=== PATIENT | male | born 1960 | race Asian ===

== ENCOUNTER 2019-08-06 10:15 | Observation (INO) | payer BC ==
[2019-08-06] MEDS: CEFTRIAXONE 1 GM/NS 50 ML IVPB (12:30)
[2019-08-06] MEDS ORDERED: MIDAZOLAM 1 MG/ML 2 ML INJ (12:51)
[2019-08-06] MEDS ORDERED: SEVOFLURANE 15 MIN (13:00)
[2019-08-06] MEDS ORDERED: PHENYLephrine 10 MG INJ (14:52)
[2019-08-06] MEDS ORDERED: PROPOFOL 20 ML (15:45)
[2019-08-06] MEDS ORDERED: LIDOCAINE 2% (SDV) 5 ML INJ (15:45)
[2019-08-06] MEDS ORDERED: ONDANSETRON 4 MG INJ (15:46)
[2019-08-06] MEDS: HYDROmorphONE 1 MG/5 ML IV SYRINGE IV ×3 (16:25→16:46)
[2019-08-06] MEDS ORDERED: LABETALOL HCL 20MG INJ IV (16:30)
[2019-08-06] MEDS ORDERED: MEPERIDINE 25 MG INJ IV (16:30)
[2019-08-06] MEDS ORDERED: METOCLOPRAMIDE 10 MG INJ IV (16:30)
[2019-08-06] MEDS ORDERED: GLUCAGON 1 MG INJ IM (16:30)
[2019-08-06] MEDS ORDERED: GLUCOSE GEL 15 GRAM TUBE BUCCAL (16:30)
[2019-08-06] MEDS ORDERED: FENTAnyl 50 MCG/ML VIAL IV (16:30)
[2019-08-06] MEDS ORDERED: ONDANSETRON 4 MG INJ IV (16:30)
[2019-08-06] MEDS ORDERED: DEXTROSE 50% 50 ML SYRINGE IV ×2 (16:30)
[2019-08-06] MEDS ORDERED: DIPHENHYDRAMINE 50 MG INJ IV (16:30)
[2019-08-06] MEDS ORDERED: GLUCOSE GEL 15 GRAM TUBE PO ×2 (16:30)
[2019-08-06] MEDS: LINAGLIPTIN 5 MG TABLET PO (16:41)
[2019-08-06] MEDS: AMLODIPINE 5 MG TAB PO (16:42)
[2019-08-06] MEDS: ENALAPRIL 5 MG TAB PO (16:42)
[2019-08-06] MEDS ORDERED: HYDROCODONE/APAP (5/325) TAB PO (17:30)
[2019-08-06] MEDS: metFORMIN 500 MG TAB PO (17:57)
[2019-08-06] MEDS: DEXTROSE 5%-0.45% NACL 1,000 ML IV (18:00)
[2019-08-06] MEDS: DOCUSATE SODIUM 100 MG CAP PO (21:00)
[2019-08-07 05:33] LABS: ADD MAN DIFF? NO
[2019-08-07 05:38] LABS: BASOPHIL # 0.1 10^3/ul (0.0-0.1); BASOPHILS % 0.8 % (0.0-2.0); EOSINOPHILS # 0.2 10^3/ul (0.0-0.5); EOSINOPHILS % 2.3 % (0.0-7.0); HEMATOCRIT 39.8 % (42.0-52.0); HEMOGLOBIN 13.3 g/dl (14.0-18.0); LYMPHOCYTES # 2.4 10^3/ul (0.8-2.9); LYMPHOCYTES % 22.8 % (15.0-51.0); MEAN CORPUSCULAR HGB CONC 33.4 g/dl (32.0-37.0); MEAN CORPUSCULAR VOLUME 92.8 fl (82.0-101.0); MEAN PLATELET VOLUME 9.2 fl (7.4-10.4); MONOCYTE # 0.9 10^3/ul (0.3-0.9); MONOCYTES % 8.1 % (0.0-11.0); NEUTROPHIL # 6.9 10^3/ul (1.6-7.5); NEUTROPHILS % 65.7 % (39.0-77.0); PLATELET COUNT 253 10^3/UL (140-415); RED BLOOD COUNT 4.29 10^6/ul (4.70-6.10); RED CELL DISTRIBUTION WIDTH 12.3 % (11.5-14.5)
[2019-08-07 05:38] LABS: WHITE BLOOD COUNT 10.5 10^3/ul (4.8-10.8)
[2019-08-07] MEDS: DOCUSATE SODIUM 100 MG CAP PO ×2 (08:28→20:49)
[2019-08-07] MEDS: LINAGLIPTIN 5 MG TABLET PO (08:28)
[2019-08-07] MEDS: ENALAPRIL 5 MG TAB PO (08:28)
[2019-08-07] MEDS: AMLODIPINE 5 MG TAB PO (08:29)
[2019-08-07] MEDS: metFORMIN 500 MG TAB PO ×2 (08:31→17:47)
[2019-08-07] MEDS: INSULIN ASPART [NOVOLOG] 3 ML PEN SC ×3 (11:40→20:48)
[2019-08-07 16:32] LABS: ANION GAP 10 (5-13); BLOOD UREA NITROGEN 11 mg/dl (7-20); CALCIUM 8.9 mg/dl (8.4-10.2); CARBON DIOXIDE 27 mmol/L (21-31); CHLORIDE 100 mmol/L (97-110); CREATININE 0.87 mg/dl (0.61-1.24); Estimated GFR > 60 mL/min (>60); GLUCOSE 159 mg/dl (70-220); POTASSIUM 3.9 mmol/L (3.5-5.1); SODIUM 137 mmol/L (135-144)
[2019-08-08] MEDS: ACCU-CHEK XX (02:00)
[2019-08-08 05:14] LABS: ADD MAN DIFF? NO
[2019-08-08 05:17] LABS: WHITE BLOOD COUNT 12.2 10^3/ul (4.8-10.8)
[2019-08-08 05:17] LABS: BASOPHIL # 0.1 10^3/ul (0.0-0.1); BASOPHILS % 0.7 % (0.0-2.0); EOSINOPHILS # 0.3 10^3/ul (0.0-0.5); EOSINOPHILS % 2.1 % (0.0-7.0); HEMATOCRIT 40.5 % (42.0-52.0); HEMOGLOBIN 13.7 g/dl (14.0-18.0); LYMPHOCYTES # 3.3 10^3/ul (0.8-2.9); LYMPHOCYTES % 26.9 % (15.0-51.0); MEAN CORPUSCULAR HEMOGLOBIN 30.9 pg (29.0-33.0); MEAN CORPUSCULAR HGB CONC 33.8 g/dl (32.0-37.0); MEAN CORPUSCULAR VOLUME 91.4 fl (82.0-101.0); MEAN PLATELET VOLUME 9.3 fl (7.4-10.4); MONOCYTE # 1.1 10^3/ul (0.3-0.9); MONOCYTES % 8.7 % (0.0-11.0); NEUTROPHIL # 7.4 10^3/ul (1.6-7.5); NEUTROPHILS % 61.3 % (39.0-77.0); PLATELET COUNT 258 10^3/UL (140-415); RED BLOOD COUNT 4.43 10^6/ul (4.70-6.10); RED CELL DISTRIBUTION WIDTH 12.5 % (11.5-14.5)
[2019-08-08 05:55] LABS: ANION GAP 8 (5-13); BLOOD UREA NITROGEN 13 mg/dl (7-20); CARBON DIOXIDE 27 mmol/L (21-31); CHLORIDE 102 mmol/L (97-110); CREATININE 0.91 mg/dl (0.61-1.24); Estimated GFR > 60 mL/min (>60); GLUCOSE 150 mg/dl (70-220); PHOSPHORUS 3.8 mg/dl (2.5-4.9); POTASSIUM 3.8 mmol/L (3.5-5.1); SODIUM 137 mmol/L (135-144)
[2019-08-08] MEDS: INSULIN ASPART [NOVOLOG] 3 ML PEN SC (07:50)
[2019-08-08] MEDS: metFORMIN 500 MG TAB PO (09:00)
[2019-08-08] MEDS: LINAGLIPTIN 5 MG TABLET PO (09:00)
[2019-08-08] MEDS: DOCUSATE SODIUM 100 MG CAP PO (09:00)
[2019-08-08] MEDS: ENALAPRIL 5 MG TAB PO (09:00)
[2019-08-08] MEDS: AMLODIPINE 5 MG TAB PO (09:01)
== END 2019-08-08 12:54 | disposition home or self-care (01) ==
LOC: SDS 10:15 → REC 15:56 → MS1 17:57
PROVIDERS: Urology
DX: N40.1 Benign prostatic hyperplasia with lower urinary tract symptoms (principal); N41.1 Chronic prostatitis; I10 Essential (primary) hypertension; E11.9 Type 2 diabetes mellitus without complications; E78.5 Hyperlipidemia, unspecified; D64.9 Anemia, unspecified
CPT/HCPCS: 52601; 80048; 82962; 83735; 84100; 85025; 87086; 88305; 99217